=== PATIENT | female | born 1960 | race Caucasian/White ===

== ENCOUNTER 2017-05-25 03:08 | Outpatient (CLI) | payer BC ==
[2017-05-25] MEDS ORDERED: Gadobenate Dimeglumine 529 MG/1 ML (20ML VIAL) ONE (14:09)
== END 2017-05-25 03:09 | disposition home or self-care (01) ==
LOC: BICMRI 03:08
PROVIDERS: ATTEND Internal Medicine Gastroenterology
DX: K76.89 Other specified diseases of liver (principal); K76.0 Fatty (change of) liver, not elsewhere classified; K75.9 Inflammatory liver disease, unspecified
CPT/HCPCS: 74183; A9579

== ENCOUNTER 2018-04-06 10:25 | Outpatient (CLI) | payer OTHER ==
--- NOTE | 2018-04-06 12:35 | CT ---
CT OF ABDOMEN AND PELVIS PERFORMED WITHOUT CONTRAST ENHANCEMENT: History: Abdominal pain, cramping, nausea, fever. History of diverticulitis. History of gastroesophag eal reflux and non-alcoholic fatty liver. Comparison: MRI 05-25-17 FINDINGS: The lung bases are clear of any infiltrative process. Liver shows some suggestion of some diffuse fatty change. Hepatic cysts within the left lobe are stab le. The spleen is within normal limits of size. The liver is also normal in size. Small cyst in the r ight lobe of the liver is also stable as compared to the prior examination. Right and left adrenal glands and right and left kidneys are normal in size. There is no bowel wall f indings. No free fluid. There is some diverticular disease of the descending colon and sigmoid withou t evidence for diverticulitis. CT OF PELVIS PERFORMED WITH CONTRAST ENHANCEMENT: The appendix region appears unremarkable. Appendix is normal in size. I do not appreciate any adenopa thy or mass. Review of osseous structures show no lytic or blastic bony change. IMPRESSION: 1. Fatty change of the liver with hepatic cyst. 2. Colonic diverticulosis. POS: [facility]
== END 2018-04-06 10:26 | disposition home or self-care (01) ==
LOC: SCSCT 10:25
PROVIDERS: ATTEND Internal Medicine Gastroenterology
DX: K21.9 Gastro-esophageal reflux disease without esophagitis (principal); K57.32 Diverticulitis of large intestine without perforation or abscess without bleeding; K76.0 Fatty (change of) liver, not elsewhere classified; K76.89 Other specified diseases of liver; K57.30 Diverticulosis of large intestine without perforation or abscess without bleeding
CPT/HCPCS: 74177

== ENCOUNTER 2023-06-01 17:00 | Outpatient (CLI) | payer BC, MEDICARE | END 2023-06-01 17:01 | disposition home or self-care (01) | LOC: SLEEPLAB 17:00 | PROVIDERS: ATTEND Internal Medicine Critical Care Medicine | DX: G47.33 Obstructive sleep apnea (adult) (pediatric) (principal); R06.83 Snoring; R53.83 Other fatigue | CPT/HCPCS: 95800 ==